=== PATIENT | male | born 1935 | race Caucasian/White ===

== ENCOUNTER 2018-10-12 09:15 | Day surgery (SDC) | payer OTHER ==
[~2018-10-12 09:15] MED LIST: Benzocaine 20% Topical Spray UD MUCMEM ONE; Dextrose 5%-0.45% NaCl 1,000 ML IV SCH; Midazolam 1 MG/ML 2 ML SDV ONE; fentaNYL 100 MCG/2 ML SDV ONE
[2018-10-12] MEDS ORDERED: fentaNYL 100 MCG/2 ML SDV IV ONE ×3 (09:16→10:00)
[2018-10-12] MEDS ORDERED: Midazolam 1 MG/ML 2 ML SDV IV ONE ×5 (09:16→10:03)
[2018-10-12] MEDS ORDERED: Benzocaine 20% Topical Spray UD MUCMEM ONE (09:57)
[2018-10-12 12:11] VITALS: BP 135/75
--- NOTE | 2018-10-12 12:18 | OR ---
DATE: 10/12/2018 PREOPERATIVE DIAGNOSES: 1. History of gastroesophageal reflux disease. 2. Rectal bleeding. POSTOPERATIVE DIAGNOSES: 1. History of gastroesophageal reflux disease. 2. Rectal bleeding. PROCEDURE: EGD. ANESTHESIA: Conscious sedation with IV Versed and fentanyl. SPECIMEN: None. OPERATIVE FINDINGS: Moderate-sized hiatal hernia. No evidence of masses or bleeding. PROCEDURE IN DETAIL: After adequate preparation, a gastroscope was inserted into the esophagus, this was passed down to the distal esophagus. He does show a 2 to 3 cm hiatal hernia. No evidence of masses or bleeding. The scope was advanced into the stomach. Both forward and retroflexed views were done and were normal. The scope was advanced through the pylorus and the duodenum was also normal. A photograph of the duodenum, stomach, and hiatal hernia were taken. Air was suctioned from the stomach and the scope removed. [facility] /[id number] cc: [facility]
--- NOTE | 2018-10-12 12:21 | OR ---
DATE: 10/12/2018 PREOPERATIVE DIAGNOSIS: Rectal bleeding. POSTOPERATIVE DIAGNOSIS: Rectal bleeding. PROCEDURES: Total colonoscopy with snare excision of polyp x3; 1 in the right colon, 1 in the mid transverse colon, and 1 in the rectum. ANESTHESIA: Conscious sedation with IV Versed and fentanyl. SPECIMEN: Polyp x3. OPERATIVE FINDINGS: Polyp x3, otherwise normal. INDICATION FOR PROCEDURE: This 83-year-old male has rectal bleeding. He had a colonoscopy 4 years ago that was supposedly normal, but does have a history of prior colon polyps on previous scopes. PROCEDURE IN DETAIL: After adequate preparation, a colonoscope was inserted into the rectum, this was easily passed all the way to the cecum. Confirmation of the cecum was made by visualization of the ileocecal valve and palpation in the right lower quadrant. The bowel prep was good. On withdrawal of the scope, he did have in the mid right colon, a small sessile polyp. A snare was encircled around this and clipped off and retrieved for pathological evaluation. In the mid transverse colon, he had a likewise small sessile polyp that was taken off in the same manner. In the rectum, he had a larger 3 to 4 mm polyp that was taken off and retrieved by snare also. No other abnormalities were noted in the colon. The anal and rectal examinations were otherwise normal. [facility] /[id number] cc: [facility]
== END 2018-10-12 12:00 | disposition home or self-care (01) ==
LOC: DL.ENDO 09:15
PROVIDERS: ATTEND Surgery
DX: K62.5 Hemorrhage of anus and rectum (principal); D12.3 Benign neoplasm of transverse colon; D12.8 Benign neoplasm of rectum; D12.2 Benign neoplasm of ascending colon; K44.9 Diaphragmatic hernia without obstruction or gangrene; K21.9 Gastro-esophageal reflux disease without esophagitis; D64.9 Anemia, unspecified; J45.909 Unspecified asthma, uncomplicated; Z88.6 Allergy status to analgesic agent; Z86.010 Personal history of colon polyps; Z79.52 Long term (current) use of systemic steroids
CPT/HCPCS: 43235; 45385; 88305; A9270; J2250; J3010; J7042; 45384

== ENCOUNTER 2020-06-20 11:50 | Emergency (ER) | payer OTHER ==
[2020-06-20 12:07] VITALS: BP 104/60; PULSE 78
--- NOTE | 2020-06-20 12:33 | EDM.PDOC ---
ED HPI GENERAL MEDICAL PROBLEM - General Chief Complaint: Respiratory Problem Stated Complaint: AMBULANCE Time Seen by Provider: 06/20/20 12:15 Source of Information: Reports: Patient History Limitations: Reports: No Limitations - History of Present Illness INITIAL COMMENTS - FREE TEXT/NARRATIVE: This 84 yo male patient was brought to the ED by [facility] due to increased shortness of breath over the past week. The patient reports he tested positive for COVID 7 days ago and had symptoms for 1 day prior to that time. [facility] and [facility]. The patient's oxygen saturation on room air was 86%. The patient's oxygen saturation increased to 94% with oxygen via NC at 2 lpm. The patient has a past medical history of COPD, but has not needed his inhalers for "years". The patient reports he does not smoke, but his neighbor "smokes like a chimney." Onset Date: 06/13/20 Duration: Day(s):, Constant, Getting Worse Location: Reports: Chest Quality: Reports: Other Severity: Moderate Improves with: Reports: None Worsens with: Reports: None Context: Reports: Other Associated Symptoms: Reports: Shortness of Breath - Related Data Allergies Allergy/AdvReac Type Severity Reaction Status Date / Time acetaminophen Allergy Other Verified 06/20/20 11:55 aspirin Allergy Anaphylactic Verified 06/20/20 11:55 Shock ibuprofen Allergy Anaphylactic Verified 06/20/20 11:55 Shock Home Meds: Home Meds Albuterol Sulfate [Proair Respiclick] 2 puff INH Q4H 10/10/18 [History] Bicalutamide [Casodex] 50 mg PO DAILY 10/10/18 [History] Budesonide/Formoterol [Symbicort 160-4.5 MCG] 2 puff INH Q12H 10/10/18 [History] Cetirizine [ZyrTEC] 10 mg PO DAILY PRN 10/10/18 [History] Cholecalciferol (Vitamin D3) [Vitamin D3] 1,000 units PO BEDTIME 10/10/18 [History] Finasteride 5 mg PO BEDTIME 10/10/18 [History] Folic Acid 1 mg PO DAILY 10/10/18 [History] Furosemide 20 mg PO DAILY 10/10/18 [History] Hydroxychloroquine [Plaquenil] 200 mg PO DAILY 10/10/18 [History] Leuprolide Acetate [Eligard] 45 mg INJECT .[id number] 10/10/18 [History] Megestrol [Megace] 40 mg PO DAILY 10/10/18 [History] Methotrexate 25 mg PO .ONCE A WEEK 10/10/18 [History] Terazosin HCl [Terazosin] 20 mg PO BEDTIME 10/10/18 [History] predniSONE [Prednisone] 5 mg PO DAILY 10/10/18 [History] sulfaSALAzine 500 mg PO ASDIRECTED 10/10/18 [History] Past Medical History HEENT History: Reports: Other (See Below) Other HEENT History: Upper and lower dentures. allergies Cardiovascular History: Reports: Heart Failure Respiratory History: Reports: COPD Gastrointestinal History: Reports: Colon Polyp, Hemorrhoids Genitourinary History: Reports: Prostate Disorder Musculoskeletal History: Reports: Arthritis, RA Neurological History: Reports: None Psychiatric History: Reports: None Endocrine/Metabolic History: Reports: None Hematologic History: Reports: Anemia Immunologic History: Reports: None Oncologic (Cancer) History: Reports: Prostate Dermatologic History: Reports: None - Infectious Disease History Infectious Disease History: Reports: None - Past Surgical History HEENT Surgical History: Reports: Polypectomy Cardiovascular Surgical History: Reports: None GI Surgical History: Reports: Colonoscopy Other Female Surgeries/Procedures: some prostate cancer found, but gone when rechecked Male Surgical History: Reports: Prostate Biopsy, Other (See Below) Musculoskeletal Surgical History: Reports: None Dermatological Surgical History: Reports: None Social & Family History - Family History Family Medical History: No Pertinent Family History - Caffeine Use Caffeine Use: ED ROS GENERAL - Review of Systems Review Of Systems: Comprehensive ROS is negative, except as noted in HPI. ED EXAM, GENERAL - Physical Exam Exam: See Below Exam Limited By: No Limitations General Appearance: Alert, WD/WN, Moderate Distress Eye Exam: Bilateral Eye: EOMI, Normal Inspection, PERRL Ears: Normal External Exam, Normal Canal, Hearing Grossly Normal, Normal TMs Nose: Normal Inspection, Normal Mucosa, No Blood Throat/Mouth: Normal Inspection, Normal Lips, Normal Teeth, Normal Gums, Normal Oropharynx, Normal Voice, No Airway Compromise Head: Atraumatic, Normocephalic Neck: Normal Inspection, Supple, Non-Tender, Full Range of Motion Respiratory/Chest: Decreased Breath Sounds (bilateral lower lobes) Cardiovascular: Normal Peripheral Pulses, Regular Rate, Rhythm, No Edema, No Gallop, No JVD, No Murmur, No Rub GI/Abdominal: Normal Bowel Sounds, Soft, Non-Tender, No Organomegaly, No Distention, No Abnormal Bruit, No Mass (Male) Exam: Deferred Rectal (Males) Exam: Deferred Back Exam: Normal Inspection, Full Range of Motion, NT Extremities: Normal Inspection, Normal Range of Motion, Non-Tender, Normal Capillary Refill, No Pedal Edema Neurological: Alert, Oriented, CN II-XII Intact, Normal Cognition, Normal Gait, Normal Reflexes, No Motor/Sensory Deficits Psychiatric: Normal Affect, Normal Mood Skin Exam: Warm, Dry, Intact, Normal Color, No Rash Lymphatic: No Adenopathy Course - Vital Signs Last Recorded V/S: Last Vital Signs Temp 36.2 C 06/20/20 12:06 Pulse 78 06/20/20 12:06 Resp 30 H 06/20/20 12:06 BP 104/60 06/20/20 12:06 Pulse Ox 92 L 06/20/20 12:06 - Orders/Labs/Meds Orders: Active Orders 24 hr Category Date Time Status EKG Documentation Completion [RC] STAT Care 06/20/20 12:09 Active Chest 1V Frontal [CR] Urgent Exams 06/20/20 14:08 Ordered CULTURE BLOOD [BC] Stat Lab 06/20/20 12:13 Received Labs: Laboratory Tests 06/20/20 06/20/20 06/20/20 Range/Units 12:13 12:13 12:13 WBC 3.0 L (5.0-10.0) 10^3/uL RBC 3.56 L (4.6-6.2) 10^6/uL Hgb 9.6 L D (14.0-18.0) g/dL Hct 30.2 L (40.0-54.0) % MCV 84.8 D (80-100) fL MCH 27.0 (27.0-34.0) pg MCHC 31.8 L (33.0-35.0) g/dL Plt Count 127 L (150-450) 10^3/uL Neut % (Auto) 86.6 H (42.2-75.2) % Lymph % (Auto) 6.4 L (20.5-50.1) % Slope % (Auto) 6.7 (2-8) % Eos % (Auto) 0.3 L (1.0-3.0) % Baso % (Auto) 0.0 (0.0-1.0) % PT 10.4 (9.0-12.0) SEC INR 1.1 (0.9-1.2) D-Dimer, Quantitative 455 H (0-400) ng/mL Sodium 136 (136-145) mmol/L Potassium 4.0 (3.5-5.1) mmol/L Chloride 99 (98-107) mmol/L Carbon Dioxide 23 (21-32) mmol/L Anion Gap 18.0 H (7-13) mEq/L BUN 19 H (7-18) mg/dL Creatinine 1.00 (0.70-1.30) mg/dL Est Cr Clr Drug Dosing 58.81 mL/min Estimated GFR (MDRD) > 60 BUN/Creatinine Ratio 19.0 (No establ ref range) Glucose 122 H (74-99) mg/dL Calcium 9.2 (8.5-10.1) mg/dL Total Bilirubin 0.5 (0.2-1.0) mg/dL AST 34 (15-37) U/L ALT 24 (16-63) U/L Alkaline Phosphatase 54 (46-116) U/L Troponin I < 0.017 (0.000-0.056) ng/mL C-Reactive Protein 12.2 H (0.0-0.9) mg/dL Total Protein 7.0 (6.4-8.2) g/dL Albumin 2.9 L (3.4-5.0) g/dL Globulin 4.1 Albumin/Globulin Ratio 0.71 Meds: Medications Discontinued Medications Generic Name Dose Route Start Last Admin Trade Name Freq PRN Reason Stop Dose Admin Dexamethasone 6 mg 06/20/20 14:00 Decadron IVPUSH 06/20/20 14:01 ONETIME ONE Departure - Departure Time of Disposition: 14:16 Disposition: DC/Tfer to Acute Hospital 02 Condition: Fair Clinical Impression: Hypoxemia, COVID-19 - Discharge Information *PRESCRIPTION DRUG MONITORING PROGRAM REVIEWED*: Not Applicable *COPY OF PRESCRIPTION DRUG MONITORING REPORT IN PATIENT MORAIMA: Not Applicable Forms: Interfacility Transfer EMTALA Care Plan Goals: Discussed the patient's history, examination and lab results with Dr. Gutierrez from the [facility] in [place]. Dr. Gutierrez accepted the patient for continued evaluation and further management as an inpatient in the [facility] in [place]. The patient will be transported by [facility]. Sepsis Event Note (ED) - Evaluation Sepsis Screening Result: No Definite Risk - Focused Exam Vital Signs: Vital Signs Temp Pulse Resp BP Pulse Ox 06/20/20 12:06 36.2 C 78 30 H 104/60 92 L - My Orders Last 24 Hours: My Active Orders 06/20/20 12:09 EKG Documentation Completion [RC] STAT 06/20/20 12:13 CULTURE BLOOD [BC] Stat 06/20/20 14:08 Chest 1V Frontal [CR] Urgent - Assessment/Plan Last 24 Hours: My Active Orders 06/20/20 12:09 EKG Documentation Completion [RC] STAT 06/20/20 12:13 CULTURE BLOOD [BC] Stat 06/20/20 14:08 Chest 1V Frontal [CR] Urgent
[2020-06-20 12:44] LABS: CHLORIDE,CL 99 mmol/L (98-107); SODIUM,NA 136 mmol/L (136-145)
[2020-06-20] MEDS ORDERED: Dexamethasone 4 MG/ML SDV IVPUSH ONE (14:00)
--- NOTE | 2020-06-20 14:46 | CR ---
EXAMINATION: Chest 1V Frontal SEX: Male AGE: 84 years CLINICAL HISTORY: 84-year-old [id number] positive male short of breath (SOB). Interpretation: No acute new cardiopulmonary abnormality identified in the interval since comparison film 20 March 2019. 1. Normal cardiac silhouette (size and configuration). No pulmonary vascular congestion, cephalization of flow, alveolar edema or dependent pleural fluid accumulation. 2. Chronic mild bronchitic pattern. No peripheral "groundglass" interstitial lung densities. 3. No lung mass or hilar lymphadenopathy. 4. No new focal lobar infiltrate or atelectasis. 5. No pneumothorax or pneumomediastinum. No abnormal air trapping.
== END 2020-06-20 14:58 ==
LOC: DL.ED 11:50
DX: U07.1 COVID-19 (principal); R09.02 Hypoxemia; I50.9 Heart failure, unspecified; J44.9 Chronic obstructive pulmonary disease, unspecified; Z79.899 Other long term (current) drug therapy; Z88.6 Allergy status to analgesic agent
CPT/HCPCS: 36415; 71045; 80053; 84484; 85025; 85379; 85610; 86140; 87040; 93005; 96374; 99285-25; J1100